=== PATIENT | male | born 1940 | race Caucasian/White ===

== ENCOUNTER 2016-06-29 14:11 | Outpatient (CLI) | payer MEDICARE ==
--- NOTE | 2016-06-30 11:50 | OP Clinic Progress Note ---
REFERRING PHYSICIAN: Dr. Nick Herrmann REASON FOR VISIT: Mr. Leon is seen in follow up on his laryngitis and hoarseness. The clinical picture was of a fungal laryngitis. After taking Diflucan intermittently over the last couple of months, he, clinically, is fairly markedly improved today. Passing a flexible fiberoptic laryngoscope down the left side without much discomfort, I could see both vocal cords. Again, there is no paralysis, mass, or cancer. The areas of leukoplakia are at about 60% improved. There is much less leukoplakia and there is less granular tissue. Again, there is definite clear visual and vocal improvement. PLAN: I recommended 3 additional weeks of Diflucan at 150 mg on Monday, Monday, and Monday and recheck in perhaps the next 4 or 5 weeks. cc: Dr. Nick DANIELSON
== END 2016-06-29 14:12 ==
LOC: ENT 14:11
PROVIDERS: ATTEND Otolaryngology
DX: R49.0 Dysphonia (principal)
CPT/HCPCS: 31575; G0463

== ENCOUNTER 2016-08-10 13:25 | Outpatient (CLI) | payer MEDICARE ==
[2016-08-10 14:17] LABS: eGFR (African) > 60; eGFR (Non-African) > 60
--- NOTE | 2016-08-10 14:29 | OP Clinic Progress Note ---
REFERRING PHYSICIAN: Dr. 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 Empirically, he has been treated several times with Diflucan. His voice has progressively gotten less hoarse. Again, since his last visit, he continues to have an improved voice. Using a flexible fiberoptic laryngoscope through the left nostril, I looked at his vocal cords. There is really clearing of the anterior two-thirds to 75% of the vocal cords. This is the most vibratory portion of the vocal cords. This contributes to the understanding of why his voice is back to near normal. He does still have some leukoplakia on the posterior 25% of the vocal cords and a little more on the left than on the right. PLAN: I have recommended Diflucan 150 mg 3 times a week on Monday, Monday, and Monday for the next month. He will get a chemistry profile in the interim and follow up in a month. The patient understands the risks associated with Diflucan and the liver. cc: Dr. iNck DANIELSON
== END 2016-08-10 13:26 ==
LOC: ENT 13:25
PROVIDERS: ATTEND Otolaryngology
DX: R49.0 Dysphonia (principal); J38.3 Other diseases of vocal cords
CPT/HCPCS: 31575; 36415; 80053; G0463

== ENCOUNTER 2016-09-14 16:02 | Outpatient (CLI) | payer MEDICARE ==
--- NOTE | 2016-09-16 10:08 | OP Clinic Progress Note ---
REFERRING PHYSICIAN: Dr. Nick Herrmann REASON FOR VISIT: Mr. Leon is seen for his month follow up for his laryngitis which appears to be fungal laryngitis. He has continued to take 150 mg of Diflucan every Monday , Monday, and Monday. His voice actually continues to improve month by month. Using a flexible fiberoptic laryngoscopy, really close to all the leukoplakia has resolved. He still has some erythema of the vocal cords. There is no gross cervical lymphadenopathy. Again, his voice remains progressively better. PLAN: More than likely most of the fungus is off the floor but potentially not out the door. I recommended Diflucan 150 mg on Monday, Monday, and Monday for the next month, and I will see him back in the clinic. If he still looks pretty good at this time, more than likely we will stop the treatment. Patient understands this. Parenthetically, his liver function tests were normal at the last visit. cc: Dr. Nick DANIELSON
== END 2016-09-14 16:03 ==
LOC: ENT 16:02
PROVIDERS: ATTEND Otolaryngology
DX: J04.0 Acute laryngitis (principal)
CPT/HCPCS: 31525; G0463

== ENCOUNTER 2016-10-19 13:45 | Outpatient (CLI) | payer MEDICARE ==
--- NOTE | 2016-10-20 13:55 | OP Clinic Progress Note ---
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 Clinically, he had fungal laryngitis. He has been given Diflucan over several months. He also has marked improvement of the clarity of his voice. To him his voice is normal at this point. With a flexible fiberoptic laryngoscope through the left nostril, he has normal moving vocal cords. There is no evident leukoplakia on either vocal cords. There is the very mildest of erythema. There is no clinical evidence of a fungal infection. PLAN: As per my discussion with Ney, I elected to simply wait perhaps 5 months and simply re-look at his larynx. He is much in accord with this. Another option would be simply to wait to see if he had a symptomatic relapse and return on his own recognizance. I think it would be better to simply re-look at his larynx in 4 or 5 months and he is much in accord with this. Arrangements will be made in that regard. He is otherwise returned to the care of Dr. Nick Herrmann. cc: Dr. Nick DANIELSON
== END 2016-10-19 13:46 ==
LOC: ENT 13:45
PROVIDERS: ATTEND Otolaryngology
DX: J38.3 Other diseases of vocal cords (principal); R49.0 Dysphonia
CPT/HCPCS: G0463

== ENCOUNTER 2018-04-16 11:17 | Outpatient (CLI) | payer MEDICARE ==
[2018-04-16 11:44] LABS: BASOPHILS % 0.3 (0.0-1.5); EOSINOPHILS % 3.1 % (0.0-6.8); MEAN CORPUSCULAR HEMOGLOBIN 32.2 pg (28.0-34.0); MONOCYTES % 6.9 % (0.0-11.0); NEUTROPHILS # 3.4 # k/uL (1.4-7.7)
[2018-04-16 12:03] LABS: eGFR (Non-African) > 60
== END 2018-04-16 11:19 ==
LOC: LAB 11:17
PROVIDERS: ATTEND Family Medicine
DX: E78.1 Pure hyperglyceridemia (principal); I10 Essential (primary) hypertension
CPT/HCPCS: 36415; 80053; 80061; 85025